=== PATIENT | female | born 2000 ===

== ENCOUNTER 2022-07-06 05:31 | Day surgery (SDC) | payer OTHER ==
[~2022-07-06] VITALS: Ht 160 cm; Wt 108.9 kg
[~2022-07-06 05:31] MED LIST: DICY20TA PO; PEPCID AC10 MG PO
[2022-07-06] MEDS ORDERED: CEFADROXIL500 MG PO (11:43)
[2022-07-06] MEDS ORDERED: SURFAK240 M1 PO (11:44)
[2022-07-06] MEDS ORDERED: ULTRACET PO (11:45)
== END 2022-07-06 13:55 | disposition home or self-care (01) ==
LOC: CIR.AMB 05:31
PROVIDERS: ATTEND Surgery
DX: K80.10 Calculus of gallbladder with chronic cholecystitis without obstruction (principal); K82.8 Other specified diseases of gallbladder; Z20.822 Contact with and (suspected) exposure to COVID-19; J45.909 Unspecified asthma, uncomplicated; G43.909 Migraine, unspecified, not intractable, without status migrainosus; E66.8 Other obesity

== ENCOUNTER 2022-11-07 13:26 | Emergency (ER) | payer OTHER ==
[~2022-11-07] VITALS: Ht 160 cm; Wt 90.7 kg
[~2022-11-07 13:26] MED LIST changes: +CEFADROXIL500 MG PO; +SURFAK240 M1 PO; +ULTRACET PO
[2022-11-07] MEDS ORDERED: PEPCID AC20 MG PO (19:45)
[2022-11-07] MEDS ORDERED: PRILOSEC OTC20 MG PO (19:45)
== END 2022-11-07 19:58 | disposition home or self-care (01) ==
LOC: ER 13:26
DX: K52.89 Other specified noninfective gastroenteritis and colitis (principal)